=== PATIENT | female | born 1970 | race Hispanic/Latino ===

== ENCOUNTER 2016-12-05 08:48 | Inpatient (IN) ==
[2016-12-03 13:19] LABS: HEMATOCRIT 35.6 % (37.0-47.0); HEMOGLOBIN 12.4 g/dL (12.0-16.0); MCH 31.5 PG (27-31); MCHC 34.8 g/dL (33-37); MCV 90.4 FL (81-99); RBC 3.94 XMIL (4.2-5.4)
[2016-12-05] MEDS ORDERED: KEFZOL 1 GM/D5W 1 GM/50 ML IVPB IV PRN (09:08)
[2016-12-05] MEDS ORDERED: LR 500 ML IV ONE (09:08)
[2016-12-05] MEDS ORDERED: REGLAN PO ONE (09:08)
[2016-12-05] MEDS ORDERED: PEPCID PO ONE (09:08)
[2016-12-05] MEDS: LR 1,000 ML IV SCH ×2 (09:35→11:58)
[2016-12-05] MEDS ORDERED: PEPCID IV ONE (10:30)
[2016-12-05] MEDS ORDERED: BICITRA PO ONE (10:30)
--- NOTE | 2016-12-05 10:36 | HISTORY AND PHYSICAL ---
PATIENT PROFILE: The patient is a 46-year-old, G 6, P 3-0-2-3, with intrauterine at 39 weeks. PAST MEDICAL HISTORY: None. PAST SURGICAL HISTORY: None. OB HISTORY: Term spontaneous vaginal delivery x3. Spontaneous AB x2. PALS SPECIALIST HISTORY: Noncontributory. SOCIAL HISTORY: No tobacco use. PHYSICAL EXAMINATION: VITAL SIGNS: Patient afebrile. Vital signs stable. GENERAL: Patient in no acute distress. LUNGS: Respirations nonlabored. ABDOMEN: Soft, gravid, nontender to palpation. DIAGNOSTIC DATA: Bedside ultrasound revealed fetus in a breech presentation. ASSESSMENT AND PLAN: A 46-year-old, 6, para 3-0-2-3 with intrauterine at 39 weeks with gestational diabetes and malpresentation. We will proceed to the operating room for primary section. cc: Cari Mosquera MD
[2016-12-05 10:38] LABS: URINE SOURCE VOIDED
[2016-12-05 10:40] LABS: BILIRUBIN URINE NEGATIVE (NEGATIVE); BLOOD URINE NEGATIVE (NEGATIVE); CLARITY CLEAR (CLEAR); COLOR YELLOW; GLUCOSE URINE NEGATIVE (NEGATIVE); LEUKOCYTES URINE NEGATIVE (NEGATIVE); NITRITE URINE NEGATIVE (NEGATIVE); PROTEIN URINE NEGATIVE (NEGATIVE); SP GRAVITY URINE 1.005; UROBILINOGEN URINE NORMAL
[2016-12-05 10:42] LABS: MANUAL DIFF NEEDED? NO
[2016-12-05 10:44] LABS: BASO% 0.3 % (0.0-0.8); EOS# 0.05 X1000 (0.0-0.7); EOS% 0.7 % (0.0-10.0); HEMATOCRIT 36.2 % (37.0-47.0); HEMOGLOBIN 12.6 g/dL (12.0-16.0); IMM GRAN# 0.05 X1000 (0.0-0.04); IMM GRAN% 0.7 % (0.0-0.5); LYMPH# 1.33 X1000 (1.2-3.4); LYMPH% 18.8 % (20.5-51.1); MCH 31.3 PG (27-31); MCHC 34.8 g/dL (33-37); MONO# 0.47 X1000 (0.11-0.59); MONO% 6.6 % (1.7-9.3); MPV 12.9 FL (7.4-10.4); NEUT% 72.9 % (42.2-75.2); PLT 166 X1000 (130-400); RBC 4.02 XMIL (4.2-5.4)
[2016-12-05] MEDS ORDERED: EPHEDRINE ONE (11:23)
[2016-12-05] MEDS ORDERED: DURAMORPH ONE (11:23)
[2016-12-05] MEDS ORDERED: PHENERGAN IM PRN (13:17)
[2016-12-05] MEDS ORDERED: HYDROXYZINE PO PRN (13:17)
[2016-12-05] MEDS ORDERED: PITOCIN IM PRN (13:17)
[2016-12-05] MEDS ORDERED: DEMEROL PO PRN ×2 (13:17)
[2016-12-05] MEDS ORDERED: DEMEROL IM PRN (13:17)
[2016-12-05] MEDS ORDERED: BOOSTRIX VACCINE IM ONE (13:17)
[2016-12-05] MEDS ORDERED: DULCOLAX PR PRN (13:17)
[2016-12-05] MEDS ORDERED: PITOCIN 20 UNITS/LR 20 UNITS/1,000 ML IV.SOLN IV ONE (13:17)
[2016-12-05] MEDS ORDERED: AMBIEN PO PRN (13:17)
[2016-12-05] MEDS ORDERED: HYDROXYZINE IM PRN (13:17)
[2016-12-05] MEDS ORDERED: MYLICON PO PRN (13:17)
[2016-12-05] MEDS ORDERED: M-M-R II VACCINE SUBQ ONE (13:17)
[2016-12-05] MEDS ORDERED: CYTOTEC PO PRN (13:17)
[2016-12-05] MEDS ORDERED: BENADRYL IV PRN (14:03)
[2016-12-05] MEDS ORDERED: ZOFRAN IV PRN ×2 (14:03)
[2016-12-05] MEDS ORDERED: NARCAN INJ PRN (14:03)
[2016-12-05] MEDS ORDERED: ZOFRAN ODT PO PRN (14:03)
[2016-12-05] MEDS ORDERED: OFIRMEV 1000 MG/ISOTONIC SOLN 1,000 MG/100 ML BOTTLE IV PRN (14:05)
[2016-12-05] MEDS ORDERED: MORPHINE IV PRN (14:05)
[2016-12-05] MEDS: PITOCIN 10 UNITS/LR 10 UNIT/1,000 ML IV.SOLN IV SCH (18:47)
[2016-12-05] MEDS: PERICOLACE PO SCH (21:48)
[2016-12-05] MEDS: MYLICON PO SCH ×2 (21:48→21:49)
[2016-12-06] MEDS: PITOCIN 10 UNITS/LR 10 UNIT/1,000 ML IV.SOLN IV SCH (02:27)
[2016-12-06] MEDS: NORCO-10 PO PRN ×2 (04:58→20:58)
[2016-12-06] MEDS: MOTRIN PO PRN ×2 (04:58→15:04)
[2016-12-06 05:44] LABS: MANUAL DIFF NEEDED? NO
[2016-12-06 05:50] LABS: BASO% 0.4 % (0.0-0.8); EOS# 0.05 X1000 (0.0-0.7); EOS% 0.6 % (0.0-10.0); HEMOGLOBIN 10.8 g/dL (12.0-16.0); IMM GRAN# 0.04 X1000 (0.0-0.04); IMM GRAN% 0.5 % (0.0-0.5); LYMPH# 1.39 X1000 (1.2-3.4); LYMPH% 16.9 % (20.5-51.1); MCH 30.3 PG (27-31); MCHC 33.8 g/dL (33-37); MCV 89.9 FL (81-99); MONO# 0.53 X1000 (0.11-0.59); MONO% 6.5 % (1.7-9.3); MPV 12.1 FL (7.4-10.4); NEUT% 75.1 % (42.2-75.2); PLT 139 X1000 (130-400); RBC 3.56 XMIL (4.2-5.4)
[2016-12-06] MEDS: MYLICON PO SCH ×4 (08:24→20:58)
[2016-12-06] MEDS: NORCO-5 PO PRN ×2 (11:27→15:03)
[2016-12-06] MEDS ORDERED: LR 1,000 ML IV SCH (13:17)
[2016-12-06] MEDS: PERICOLACE PO SCH (20:58)
[2016-12-07] MEDS: NORCO-10 PO PRN (04:29)
[2016-12-07] MEDS: MOTRIN PO PRN ×2 (04:29→13:54)
--- NOTE | 2016-12-07 07:05 | DISCHARGE SUMMARY ---
ADMISSION DATE: 12/05/2016 DISCHARGE DATE: 12/07/2016 ADMITTING DIAGNOSES: 1. Term . 2. Breech presentation. PRINCIPAL DIAGNOSES: 1. Term . 2. Breech presentation. PRINCIPAL PROCEDURE: Primary low-transverse section. SUMMARY: Ms. Coronado is a 46-year-old 6, para 3-0-2-3 at 39 weeks gestation. She was admitted for breech presentation. Her has been complicated by gestational diabetes. She underwent a primary low transverse section by Dr. Matias, and she delivered a male infant who weighed 8 pounds. Apgars were 9 at 1 minute and 10 at 5 minutes. There were no intraoperative complications. Following delivery, the patient did well. She remained afebrile, and all vital signs were stable. She had an admission hemoglobin of 12.4 with hematocrit of 35.6 and discharge hemoglobin and hematocrit was 10.8/32. Blood sugars were normal postoperatively. On the day of discharge, cardiac and pulmonary examinations normal. Bowel and bladder function normal. Incision was clean and dry. She was having scant vaginal bleeding. Ms. Coronado will be discharged today, and we will see her back in the office in a week. Routine discharge instructions, activity limitations, and precautions were discussed. She will continue vitamins and iron, and she is given prescriptions for Motrin and [place] for postoperative pain. cc: MD Cari Kent MD
[2016-12-07] MEDS: NORCO-5 PO PRN ×2 (08:16→13:54)
[2016-12-07 08:22] VITALS: BP 101/50
[2016-12-07] MEDS: MYLICON PO SCH ×2 (09:29→13:53)
--- NOTE | 2016-12-31 16:52 | OPERATIVE NOTE ---
PROCEDURE DATE: PREOPERATIVE DIAGNOSIS: 1. Intrauterine at 39 weeks. 2. Gestational diabetes. 3. Malpresentation. POSTOP DIAGNOSIS: 1. Intrauterine at 39 weeks. 2. Gestational diabetes. 3. Malpresentation. PROCEDURE: Primary low segment transverse section. SURGEON: Dr. Mosquera. ESTIMATED BLOOD LOSS: 600 mL. COMPLICATIONS: None. COUNTS: Correct x2. FINDINGS: Viable male infant. Weight and Apgars currently unavailable. Grossly normal appearing uterus, bilateral fallopian tubes and ovaries. INDICATIONS FOR PROCEDURE: Patient is a 46-year-old G6, P3-0-2-3 with intrauterine at 39 weeks. The patient presents for primary abdominal delivery secondary to malpresentation. Risks, benefits, alternatives discussed with the patient and she desires to proceed. PROCEDURE IN DETAIL: After proper informed consent was obtained, patient was taken to the operating room and placed in the dorsal supine position with adequate spinal anesthesia. The abdomen was prepped and draped in normal sterile fashion for abdominal surgery. After proper time- out was performed the abdomen was tested with Allis clamps and noted to be appropriately anesthetized. Using the scalpel we then made a low transverse incision on the skin, this carried down to the underlying fascia which was scored in the midline. Fascial incision extended laterally cephalic using Cabello scissors. Inferior aspect of the fascial defect was dissected off the underlying rectus abdominis muscle. Similar was carried out the superior aspect of the fascial defect. Muscles were bluntly in the midline. Peritoneum was entered bluntly and stretched using derrick operator's hand. Bladder blade was placed to protect the bladder. A low transverse incision was made on the uterus and stretched using the derrick operator's hand. Fetus was then delivered in the breech presentation. Cord was doubly clamped and cut. was handed off to waiting pediatric staff. Placenta was delivered via fundal massage. The uterus was exteriorized and cleared free of all clot and debris. The hysterotomy was reapproximated using #1 chromic in a running locking fashion and noted to be hemostatic. The posterior cul-de-sac was cleared free of all clot and debris and uterus was returned to the abdomen. The pericolic gutters cleared free of all clot and debris. The abdomen was copiously irrigated. The hysterotomy was reinspected and noted to be hemostatic. The peritoneum was then reapproximated using 3-0 chromic in a running continuous fashion. The muscles were noted to be hemostatic. The fascia was reapproximated using #1 Vicryl in a running continuous fashion. Subcutaneous tissue was reapproximated using 3-0 chromic in a running continuous fashion. Skin was reapproximated using 4- 0 Monocryl in a subcuticular fashion. Patient tolerated procedure well, was transferred to recovery in stable condition. cc: Cari Mosquera MD
== END 2016-12-07 15:15 | disposition home or self-care (01) ==
LOC: P.LD 08:48 → P.WC 14:37
PROVIDERS: ADMIT Obstetrics & Gynecology; ATTEND Obstetrics & Gynecology